=== PATIENT | male | born 1945 | race Caucasian/White ===

== ENCOUNTER 2016-06-22 19:41 | Inpatient (IN) | payer MEDICARE, OTHER ==
--- NOTE | ~2016-06-22 | DS ---
Discharge Summary [facility] [address] [facility] [place] [address] NAME: KLAUDIA DAVISON : 45 STATUS : DIS IN PAT#: [id number] AGE: 71 ADM/REG DATE : 06/23/16 MR#: [id number] REPORT SERV DATE: 06/27/16 DICTATED BY: JEREMY BOYER DATE: 06/26/16 REPORT STATUS : Draft TRANSCRIBED BY: MODL DATE: 06/26/16 ADMISSION DATE: 06/23/2016 DISCHARGE DATE: 06/26/2016 DISCHARGE DIAGNOSES: 1. Right pneumonia, community acquired, present on admission, right upper and right lower lobe. 2. Diabetes type 2 with some hyperglycemia related to steroids, most recent hemoglobin A1c is 7.3. 3. Chronic kidney disease, stage 2 to 3, most recent creatinine 1.55. 4. Hypertension. 5. Chronic systolic heart failure. 6. History of lung cancer and history of left upper lobe lobectomy. 7. Positive troponins with demand-related cardiac ischemia due to the pneumonia. 8. History of Clostridium difficile colitis. 9. History of pancreatitis current. DISCHARGE MEDICATIONS: As follows: 1. Amlodipine 5 mg twice a day, prescription written for this. 2. Aspirin recommended 81 mg daily, although the patient is to follow up with Dr. Sierra as he states Dr. Sierra gave him 325 mg daily. 3. Lipitor 20 mg at supper. 4. Carvedilol 25 mg twice a day, prescription was written for this. 5. Chlorthalidone 12.5 mg daily. 6. Hugoton 10/325 one tablet four times a day. 7. NovoLog insulin on a sliding scale with meals. 8. Lantus insulin 60 units twice a day for the next three days while finishing prednisone, then to resume 40 units twice a day thereafter. 9. Cozaar 50 mg daily, prescription written for this. 10.Multivitamin one tablet daily. 11.Prilosec 20 mg daily. 12.Metformin 500 mg twice a day. 13.Claritin 10 mg daily p.r.n. for seasonal allergies. 14.Prednisone 40 mg daily for three more days. 15.Levaquin 750 mg daily for three more days. 16.ProAir inhaler two puffs p.r.n. every four hours for wheezing and shortness of breath, prescription was written for this. HISTORY OF PRESENT ILLNESS: This is a pleasant 71-year-old male, who presented with intractable cough and shortness of breath. Please see the initial H and P of Dr. Jorge Richardson as the patient was admitted to the Hospitalist Service for further evaluation and treatment. PROCEDURES AND IMAGING DURING THIS ADMISSION: Included a CTA of the chest showing pneumonia in the mid and right lower lobe, cardiomegaly, and significant coronary artery disease; a swallowing study that showed generally normal swallowing with no aspiration; an Discharge Summary [id number] [place]. [address] NAME: KLAUDIA DAVISON : 45 STATUS : DIS IN PAT#: [id number] AGE: 71 ADM/REG DATE : 06/23/16 MR#: [id number] REPORT SERV DATE: 06/27/16 DICTATED BY: JEREMY BOYER DATE: 06/26/16 REPORT STATUS : Draft TRANSCRIBED BY: MODL DATE: 06/26/16 echocardiogram showing an ejection fraction of 50%, mild concentric left ventricular hypertrophy, mild left atrial enlargement, some mild aortic regurgitation, no significant change from previous study of June 2015. HOSPITAL COURSE: The patient was initially seen by Dr. Mirza Laws in followup where he was continued on his antibiotic therapy, and lab work was followed closely. During this hospitalization, he was given aggressive nebulizer therapy and steroid therapy, which the patient did have some rather persistent wheezing, but finally began to improve near the end of his hospital stay on 06/26/2016. He has had some changes in relation to his overall antihypertensives to help preserve his kidney function and hopefully give him some better control of his systolic elevations. He has tolerated the antibiotic treatment well and has had no loose stools or diarrhea given his history of C difficile. He passed the above- described swallow study, and there was no treatment recommended. He has been able to ambulate in the hallway and has been able to wean off his oxygen, and he was felt safe for discharge home on 06/26/2016 with the above-described medication regimen, prescriptions, and instructions to follow up as an outpatient promptly with his new primary care which he states is Dr. Pearson in [place], and he will also follow up with his ethylene plant helper, Dr. Sierra, as an outpatient. Please note that greater than 30 minutes was spent on this discharge for numerous medication teachings, adjustments, followup planning, and further disposition. DIGNA/TOMAS Jeremy Boyer NP / [id number]
--- NOTE | ~2016-06-22 | HP ---
History And Physical [id number] [place]. [address] NAME: KLAUDIA FLORES : 45 STATUS : ADM Madeline PAT#: [id number] AGE: 71 ADM/REG DATE : 06/22/16 MR#: [id number] REPORT SERV DATE: 06/23/16 DICTATED BY: JORGE TALAVERA DATE: 06/22/16 REPORT STATUS : Draft TRANSCRIBED BY: MODL DATE: 06/22/16 DATE OF ADMISSION: 06/22/2016 CHIEF COMPLAINT: Intractable cough and shortness of breath. HISTORY OF PRESENT ILLNESS: This is a 71-year-old male with a history of coronary artery disease, prior lobectomy for pulmonary sarcoid, poorly controlled diabetes mellitus, who presents to the emergency room at [facility] with the above- mentioned complaint. History is obtained from the patient, his , who is at bedside, and reviewing data available on the [employer] system. According to the patient and his , he started having intractable cough about two weeks ago, which just would not be controlled by any [id number] treatments that they have tried. They also saw their primary care physician, Dr. Gonzalez in [place], who has given him a shot of steroids and some cough suppressants. The patient and state this did not help either. During this time, he has become progressively or increasingly short of breath and has some dyspnea with exertion class 2-3. He also had some substernal fleeting chest pain, which he says was 2-3/10 and did not last very long at all. He finally decided to come to the emergency room here to be evaluated. In the emergency room, initial workup including chest x-ray did not show any significant findings, but he did have elevated troponin. He does have a history of coronary artery disease and Hospitalist Service is asked to admit him for further evaluation and treatment. At the time of my evaluation, he denied any chest pain or palpitations. He had no orthopnea. He however had intractable cough, which was essentially dry, nonproductive, not associated with any hemoptysis, night sweats, or weight loss. He has not had any recent fevers or chills. No history of falls or loss of consciousness. Denied any nausea, vomiting, diarrhea. No other history of recent travel or exposures. Denied any hematemesis, hematochezia, or hematuria. PAST MEDICAL HISTORY: Significant for coronary artery disease with CABG, history of diabetes mellitus, history of lobectomy for pulmonary sarcoid and history of pancreatitis. He has history of prior Clostridium difficile colitis as well. SOCIAL HISTORY: He has never smoked. Does not drink or use recreational drugs. He used to drive a truck for living. FAMILY HISTORY: Noncontributory. MEDICATIONS AT HOME: Reviewed by me in the chart today and reordered by me. REVIEW OF SYSTEMS: As in history of present illness. All other systems were reviewed in detail and are quite unremarkable. History And Physical [address] [place]. [address] NAME: KLAUDIA FLORES : 45 STATUS : ADM Madeline PAT#: [id number] AGE: 71 ADM/REG DATE : 06/22/16 MR#: [id number] REPORT SERV DATE: 06/23/16 DICTATED BY: JORGE TALAVERA DATE: 06/22/16 REPORT STATUS : Draft TRANSCRIBED BY: TOMAS DATE: 06/22/16 PHYSICAL EXAMINATION: GENERAL: This is a pleasant 71-year-old, not in any acute distress. HEENT: His head is atraumatic, normocephalic. He is alert, awake, oriented to time, place, and person. Pupils are equal, reacting to light, and accommodating. External ocular muscles are intact. Membranes are moist and pink. Sclerae are nonicteric. NECK: Supple with no jugular venous distention, lymphadenopathy, or thyromegaly. LUNGS: Clear to auscultation with few bilateral expiratory wheezes, otherwise without any rales. Trachea appeared to be in the midline. HEART: Auscultation of his heart revealed normal rate and rhythm with no murmurs, rubs, or gallops appreciated. ABDOMEN: Soft, nontender. Bowel sounds are present. EXTREMITIES: Showed no cyanosis, clubbing, or edema. NEUROLOGIC: Grossly intact. No focal sensory or motor deficits. Higher functions appeared intact. He was able to move all four extremities. VITAL SIGNS: Today showed a temperature of 97.8, pulse 84, respirations 20 a minute, blood pressure was 163/95, oxygen saturations were 97%, breathing 2 L of oxygen via nasal cannula. LABORATORY DATA: Reviewed on the [employer] system showed a sodium of 139, potassium 4.1, chloride 104, CO2 was 27, BUN was 22 with a creatinine of 1.37. His blood glucose was 264. Alkaline phosphatase, AST, and ALT were within normal limits. Lipase was not checked here. His BNP was 282.9. CBC revealed white blood cell count of 6600, hemoglobin 13, hematocrit 39.1, and platelet count was 126,000. Urinalysis was not checked. Films of the chest x-ray were reviewed by me on the PACS today and interpreted by me. Today's films were compared to prior films available on the PACS as well. Per my interpretation, there is increased interstitial markings, but without any lobar consolidations or pleural effusions. There is prior sternotomy. A 12-lead EKG done in the emergency room was reviewed and interpreted by me. There is normal sinus rhythm with a rate of [address]-T changes. IMPRESSION: 1. Intractable cough. 2. Elevated troponin. 3. Coronary artery disease with coronary artery bypass graft. 4. History of lobectomy for pulmonary sarcoidosis. 5. Diabetes mellitus with hyperglycemia. 6. History of pancreatitis. 7. History of Clostridium difficile colitis. PLAN: We will admit Mr. Flores to the Hospitalist Service with telemetry for 24-hour observation period. We will follow serial troponins, rule out any acute coronary syndrome. We will also start him on intravenous diuretics cautiously. Follow serial weights and outputs. We will also get an echocardiogram in the morning. We will place him on bronchodilator treatments and continue supplemental oxygen therapy and provide antitussives as well. We will also get his blood sugars under control with NovoLog given subcutaneously per sliding scale. We will go ahead and check his A1c also. We will also check his influenza A and B, lipase, and get a CTA of his chest as well. We will also check his Legionella urinary antigen and other tests as ordered. He is on aspirin, which we will continue. We will also place him on unfractionated heparin for DVT prophylaxis while here. History And Physical [address] [place]. [address] NAME: KLAUDIA FLORES : 45 STATUS : ADM Madeline PAT#: [id number] AGE: 71 ADM/REG DATE : 06/22/16 MR#: [id number] REPORT SERV DATE: 06/23/16 DICTATED BY: JORGE TALAVERA DATE: 06/22/16 REPORT STATUS : Draft TRANSCRIBED BY: TOMAS DATE: 06/22/16 Please see today's orders for details. I have discussed the above plans with the patient and his . Questions were answered and they are agreeable to the above recommendations. Further recommendations will follow after we have results of the tests ordered. Hospitalist Service will be following him during his stay here. /TOMAS Jorge Talavera M.D. / [id number] CC: Josh Harris Jr, MD
[2016-06-22 18:29] LABS: BASOPHILS 0.3 %; BASOPHILS ABSOLUTE 0.02 10/3/uL (0.0-0.16); EOSINOPHILS 0.8 %; EOSINOPHILS ABSOLUTE 0.05 10/3/uL (0.0-0.53); ER CBC TAT 0 Hrs 07 Mins; HEMATOCRIT 39.1 % (40.0-51.0); IMMATURE GRANULOCYTES 0.3 %; IMMATURE GRANULOCYTES ABSOLUTE 0.02 10/3/uL (0.0-0.11); LYMPHOCYTES 13.3 %; LYMPHOCYTES ABSOLUTE 0.88 10/3/uL (0.67-4.30); MANUAL DIFF NO %; MEAN CORPUS HGB CONC 33.2 g/dL (32.0-36.0); MEAN CORPUSCULAR HEMOGLOB 29.6 pg (26.0-34.0); MEAN CORPUSCULAR VOLUME 89.1 fL (80-100); MEAN PLATELET VOLUME 11.2 fL (9.2-13.0); MONOCYTES 27.5 %; MONOCYTES ABSOLUTE 1.82 10/3/uL (0.21-1.20); NEUTROPHILS 57.8 %; NEUTROPHILS ABSOLUTE 3.84 10/3/uL (2.02-8.40); PLATELET COUNT 126 10/3/uL (150-400); RBC DISTRIBUTION WIDTH 15.8 % (12.0-16.0); RED CELL COUNT 4.39 10/6/uL (4.7-6.1); WHITE BLOOD CELLS 6.6 10/3/uL (4.5-10.5)
[2016-06-22 18:43] LABS: A/G RATIO 0.8 (0.7-1.9); ALBUMIN 3.5 G/DL (3.5-5.0); BUN (BLOOD UREA NITROGEN) 22 MG/DL (6-23); CALCIUM, SERUM 9.1 MG/DL (8.5-10.4); CHLORIDE, SERUM 104 MMOL/L (96-112); CO2 (CARBON DIOXIDE) 27 MMOL/L (24-34); GLOBULIN 4.6 G/DL (2.5-4.1); GLUCOSE, SERUM 264 MG/DL (60-99); POTASSIUM, SERUM 4.1 MMOL/L (3.5-5.3); SGOT(AST) 24 U/L (5-40); SGPT(ALT) 30 U/L (5-65); SODIUM, SERUM 139 MMOL/L (135-148); TOTAL BILIRUBIN 1.2 MG/DL (0-1.2); TOTAL PROTEIN 8.1 G/DL (6.0-8.5)
[2016-06-22 18:44] LABS: ALKALINE PHOSPHATASE 93 U/L (45-117); CREATININE 1.37 MG/DL (0.70-1.30); GFR AFRICAN AMERICAN 60 ML/MIN (>=60); GFR NON AFRICAN AMERICAN 52 ML/MIN (>=60)
[2016-06-22 18:45] LABS: TROPONIN I 0.49 NG/ML (<0.05)
[2016-06-22 19:11] LABS: BAND NEUTROPHILS 9 %; BASOPHILS 1 %; BASOPHILS ABSOLUTE (CALC) 0.07 10/3/uL (0.0-0.16); ER DIFF TAT 0 Hrs 49 Mins; LYMPHOCYTES 18 %; LYMPHOCYTES ABSOLUTE (CALC) 1.19 10/3/uL (0.67-4.30); MONOCYTES 8 %; MONOCYTES ABSOLUTE (CALC) 0.53 10/3/uL (0.21-1.20); NEUTROPHILS ABSOLUTE (CALC) 4.82 10/3/uL (2.02-8.40); OVALOCYTES 1+ (3-10/OIF) (0-2/OIF); PLATELET ESTIMATE SLT DEC (ADEQUATE); SEGMENTED NEUTROPHIL (0) 64 %; TOTAL NUCLEATED CELLS 100
[2016-06-22 19:12] LABS: ELLIPTOCYTES 1+ (3-10/OIF) (0-2/OIF); SCHISTOCYTES OCC (0-2/OIF)
[~2016-06-22 19:41] MED LIST: ACET500CAP PO; ASA5GR PO; ASAB PO; ASABAYER PO; CENTRUM TAB1 TAB PO; CHLORTHALID50 MG OR; CLARIT10 PO; COREG12 PO; COREG25 PO; COZAAR100 MG PO; DEPAKOT500 PO; DEPAKOTEER PO; DIOVAN320 MG PO; FLOMAX4 PO; FLONASE NAS; GLUCOPHAGE1000 MG PO; GLUCPH PO; HYGROTON 25 MG25 MG PO; KLOR-CON M2020 MEQ PO; L40 PO; LANTUS SC; LANTUSCART SC; LEVAQUIN750 MG PO; LIPITOR10 PO; LIPITOR20 PO; LORTAB10 PO; MONODOX100 MG PO; MULTIVIT/MIN PO; NITROSTAT0.4 MG SL; NORCO1 TAB PO; NORV10 PO; NOVOLOG SC; NOVOPEN SC; PLAVIX PO; PRAVACHOL40 MG PO; PRILO PO; PROTONIX PO; TESS PO; THERAPEUTIC PO; TRAZ50 PO; TUMERIC SUPPLEMENT PO; ZOL50 PO; [UNRECOGNIZED DRUG - OTHER] OR
[2016-06-22 21:06] LABS: INFLUENZA A SCREEN NEGATIVE (NEGATIVE); INFLUENZA B SCREEN NEGATIVE (NEGATIVE)
[2016-06-23 02:24] LABS: HEMATOCRIT 40.8 % (40.0-51.0); HEMOGLOBIN 13.5 g/dL (13.6-17.8); MANUAL DIFF YES %; MEAN CORPUS HGB CONC 33.1 g/dL (32.0-36.0); MEAN CORPUSCULAR HEMOGLOB 29.7 pg (26.0-34.0); MEAN CORPUSCULAR VOLUME 89.9 fL (80-100); MEAN PLATELET VOLUME 10.5 fL (9.2-13.0); PLATELET COUNT 128 10/3/uL (150-400); RBC DISTRIBUTION WIDTH 15.7 % (12.0-16.0); RED CELL COUNT 4.54 10/6/uL (4.7-6.1); WHITE BLOOD CELLS 8.5 10/3/uL (4.5-10.5)
[2016-06-23 02:48] LABS: BAND NEUTROPHILS 9 %; LYMPHOCYTES 7 %; MONOCYTES 19 %; MONOCYTES ABSOLUTE (CALC) 1.62 10/3/uL (0.21-1.20); NEUTROPHILS ABSOLUTE (CALC) 6.29 10/3/uL (2.02-8.40); PLATELET ESTIMATE SLT DEC (ADEQUATE); RBC MORPHOLOGY NORM (NORMAL); SEGMENTED NEUTROPHIL (0) 65 %; TOTAL NUCLEATED CELLS 100
[2016-06-23 02:51] LABS: CALCIUM, SERUM 8.9 MG/DL (8.5-10.4); CHLORIDE, SERUM 103 MMOL/L (96-112); CO2 (CARBON DIOXIDE) 31 MMOL/L (24-34); CREATININE 1.44 MG/DL (0.70-1.30); GFR AFRICAN AMERICAN 56 ML/MIN (>=60); GFR NON AFRICAN AMERICAN 49 ML/MIN (>=60); GLUCOSE, SERUM 242 MG/DL (60-99); POTASSIUM, SERUM 4.1 MMOL/L (3.5-5.3); SODIUM, SERUM 142 MMOL/L (135-148)
[2016-06-23 02:52] LABS: BUN (BLOOD UREA NITROGEN) 26 MG/DL (6-23); CK-MB 1.1 NG/ML; CPK 115 U/L (0-200); TROPONIN I 0.29 NG/ML (<0.05)
[2016-06-23 08:30] LABS: ASCORBIC ACID (UR NOT ORDER) NEG (NEG); BILIRUBIN, URINE NEGATIVE (NEG); KETONE, URINE NEGATIVE (NEG); LEUKOCYTE ESTERASE(NOT OR TRACE (NEG); WBC (NOT ORDERED) (RFLEX) 36 (0-5)
[2016-06-23 10:40] LABS: TROPONIN I 0.3 NG/ML (<0.05)
[2016-06-24 05:57] LABS: HEMATOCRIT 40.6 % (40.0-51.0); HEMOGLOBIN 13.7 g/dL (13.6-17.8); MEAN CORPUS HGB CONC 33.7 g/dL (32.0-36.0); MEAN CORPUSCULAR HEMOGLOB 29.8 pg (26.0-34.0); MEAN CORPUSCULAR VOLUME 88.5 fL (80-100); MEAN PLATELET VOLUME 10.7 fL (9.2-13.0); PLATELET COUNT 130 10/3/uL (150-400); RED CELL COUNT 4.59 10/6/uL (4.7-6.1); WHITE BLOOD CELLS 8.4 10/3/uL (4.5-10.5)
[2016-06-24 05:58] LABS: MANUAL DIFF YES %
[2016-06-24 06:05] LABS: ALBUMIN 3.6 G/DL (3.5-5.0); BUN (BLOOD UREA NITROGEN) 30 MG/DL (6-23); CALCIUM, SERUM 8.9 MG/DL (8.5-10.4); CHLORIDE, SERUM 98 MMOL/L (96-112); CO2 (CARBON DIOXIDE) 29 MMOL/L (24-34); CREATININE 1.27 MG/DL (0.70-1.30); GFR AFRICAN AMERICAN 65 ML/MIN (>=60); GFR NON AFRICAN AMERICAN 56 ML/MIN (>=60); GLUCOSE, SERUM 249 MG/DL (60-99); PHOSPHORUS, SERUM 3.2 MG/DL (2.5-4.5); SODIUM, SERUM 137 MMOL/L (135-148)
[2016-06-24 06:43] LABS: BAND NEUTROPHILS 6 %; LYMPHOCYTES 14 %; LYMPHOCYTES ABSOLUTE (CALC) 1.18 10/3/uL (0.67-4.30); MONOCYTES 18 %; MONOCYTES ABSOLUTE (CALC) 1.51 10/3/uL (0.21-1.20); NEUTROPHILS ABSOLUTE (CALC) 5.71 10/3/uL (2.02-8.40); PLATELET ESTIMATE SLT DEC (ADEQUATE); RBC MORPHOLOGY NORM (NORMAL); SEGMENTED NEUTROPHIL (0) 62 %; TOTAL NUCLEATED CELLS 100
[2016-06-25 06:56] LABS: BASOPHILS 0.1 %; BASOPHILS ABSOLUTE 0.01 10/3/uL (0.0-0.16); EOSINOPHILS 0 %; HEMATOCRIT 41.2 % (40.0-51.0); HEMOGLOBIN 13.9 g/dL (13.6-17.8); IMMATURE GRANULOCYTES 0.2 %; IMMATURE GRANULOCYTES ABSOLUTE 0.02 10/3/uL (0.0-0.11); LYMPHOCYTES 17.7 %; LYMPHOCYTES ABSOLUTE 1.43 10/3/uL (0.67-4.30); MEAN CORPUS HGB CONC 33.7 g/dL (32.0-36.0); MEAN CORPUSCULAR HEMOGLOB 29.6 pg (26.0-34.0); MEAN CORPUSCULAR VOLUME 87.8 fL (80-100); MEAN PLATELET VOLUME 10.7 fL (9.2-13.0); MONOCYTES 7.9 %; MONOCYTES ABSOLUTE 0.64 10/3/uL (0.21-1.20); NEUTROPHILS 74.1 %; NEUTROPHILS ABSOLUTE 5.98 10/3/uL (2.02-8.40); PLATELET COUNT 149 10/3/uL (150-400); RBC DISTRIBUTION WIDTH 15.3 % (12.0-16.0); RED CELL COUNT 4.69 10/6/uL (4.7-6.1); WHITE BLOOD CELLS 8.1 10/3/uL (4.5-10.5)
[2016-06-25 07:00] LABS: MANUAL DIFF NO %
[2016-06-25 07:15] LABS: ALBUMIN 3.4 G/DL (3.5-5.0); BUN (BLOOD UREA NITROGEN) 43 MG/DL (6-23); CALCIUM, SERUM 9.3 MG/DL (8.5-10.4); CHLORIDE, SERUM 97 MMOL/L (96-112); CO2 (CARBON DIOXIDE) 30 MMOL/L (24-34); CREATININE 1.49 MG/DL (0.70-1.30); GFR AFRICAN AMERICAN 54 ML/MIN (>=60); GFR NON AFRICAN AMERICAN 47 ML/MIN (>=60); GLUCOSE, SERUM 292 MG/DL (60-99); PHOSPHORUS, SERUM 3.4 MG/DL (2.5-4.5); SODIUM, SERUM 136 MMOL/L (135-148)
[2016-06-26 04:41] LABS: BASOPHILS 0.2 %; BASOPHILS ABSOLUTE 0.02 10/3/uL (0.0-0.16); EOSINOPHILS 0 %; HEMATOCRIT 40.5 % (40.0-51.0); HEMOGLOBIN 13.7 g/dL (13.6-17.8); IMMATURE GRANULOCYTES 0.4 %; IMMATURE GRANULOCYTES ABSOLUTE 0.05 10/3/uL (0.0-0.11); LYMPHOCYTES 16.9 %; LYMPHOCYTES ABSOLUTE 2.24 10/3/uL (0.67-4.30); MEAN CORPUS HGB CONC 33.8 g/dL (32.0-36.0); MEAN CORPUSCULAR HEMOGLOB 29.7 pg (26.0-34.0); MEAN CORPUSCULAR VOLUME 87.7 fL (80-100); MEAN PLATELET VOLUME 10.6 fL (9.2-13.0); MONOCYTES 11.7 %; MONOCYTES ABSOLUTE 1.56 10/3/uL (0.21-1.20); NEUTROPHILS 70.8 %; NEUTROPHILS ABSOLUTE 9.42 10/3/uL (2.02-8.40); PLATELET COUNT 160 10/3/uL (150-400); RBC DISTRIBUTION WIDTH 15.3 % (12.0-16.0); RED CELL COUNT 4.62 10/6/uL (4.7-6.1)
[2016-06-26 04:42] LABS: MANUAL DIFF NO %; WHITE BLOOD CELLS 13.3 10/3/uL (4.5-10.5)
[2016-06-26 04:51] LABS: ALBUMIN 3.3 G/DL (3.5-5.0); CALCIUM, SERUM 9.5 MG/DL (8.5-10.4); CHLORIDE, SERUM 97 MMOL/L (96-112); CO2 (CARBON DIOXIDE) 27 MMOL/L (24-34); CREATININE 1.55 MG/DL (0.70-1.30); GFR AFRICAN AMERICAN 51 ML/MIN (>=60); GFR NON AFRICAN AMERICAN 44 ML/MIN (>=60); GLUCOSE, SERUM 293 MG/DL (60-99); PHOSPHORUS, SERUM 3.3 MG/DL (2.5-4.5); SODIUM, SERUM 133 MMOL/L (135-148)
[2016-06-26 04:54] LABS: BUN (BLOOD UREA NITROGEN) 54 MG/DL (6-23)
[2016-06-26] MEDS ORDERED: P10 PO (11:29)
[2016-06-26] MEDS ORDERED: NORV5 PO (11:30)
[2016-06-26] MEDS ORDERED: PROAIR HFA INH (11:30)
[2016-06-26] MEDS ORDERED: LEVAQUIN750 MG PO (11:30)
== END 2016-06-26 12:21 | disposition home or self-care (01) | DRG 194 ==
LOC: ER 19:41 → CDU1 20:35 → 5NO 21:57
PROVIDERS: Emergency Medicine; Hospitalist; Internal Medicine; Internal Medicine Pulmonary Disease
DX: J18.9 Pneumonia, unspecified organism (principal); I13.0 Hypertensive heart and chronic kidney disease with heart failure and stage 1 through stage 4 chronic kidney disease, or unspecified chronic kidney disease; I50.22 Chronic systolic (congestive) heart failure; I24.8 Other forms of acute ischemic heart disease; E11.65 Type 2 diabetes mellitus with hyperglycemia; I25.10 Atherosclerotic heart disease of native coronary artery without angina pectoris; Z95.1 Presence of aortocoronary bypass graft; N18.3 Chronic kidney disease, stage 3 (moderate); Z85.118 Personal history of other malignant neoplasm of bronchus and lung; Z79.4 Long term (current) use of insulin; Z79.84 Long term (current) use of oral hypoglycemic drugs
CPT/HCPCS: 71020; 71275; 74230; 80048; 80053; 80069; 81001; 82550; 82553; 82962; 83036; 83735; 83880; 84100; 84443; 84484; 85025; 87040; 87070; 87086; 87205; 87449; 87804; 92611-GN; 93005; 94640; 99285; A9270-GY; C8929; G8996-CI-GN; G8997-CI-GN; G8998-CI-GN; J0360; Q9957; Q9967